=== PATIENT | female | born 2000 | race Caucasian/White ===

== ENCOUNTER 2022-06-23 14:00 | Emergency (ER) | payer OTHER, MEDICAID, SELFPAY ==
--- NOTE | ~2022-06-23 | XR_ITS ---
EXAMINATION: XR chest 2V DATE: 06/23/2022 15:03 INDICATION: Sternal chest pain. TECHNIQUE: Frontal and lateral views of the chest were obtained. COMPARISON: None. FINDINGS: The chest demonstrates clear lungs without pneumonia, pleural effusion, or pneumothorax. Th e heart size is normal. IMPRESSION: 1. No acute cardiopulmonary disease. Reviewed, dictated and finalized at location A. [facility] [employer] CLERK
--- NOTE | 2022-06-23 14:28 | ECG_ITS ---
Measurements Intervals [place] Rate: 68 P: 35 [place]: 137 QRS: 53 QRSD: 92 T: 47 QT: 376 QTc: 402 Interpretive Statements SINUS RHYTHM WITH SINUS ARRHYTHMIA INCOMPLETE RIGHT BUNDLE BRANCH BLOCK [90+ ms QRS DURATION, TERMINAL R IN V1/V2, 40+ ms S IN I/aVL/V4/V5/V6] NO PREVIOUS ECG AVAILABLE FOR COMPARISON Electronically Signed On 06-23-2022 16:18:25 [employer] by Josep Cassidy M.D.
[2022-06-23 14:32] VITALS: BP 152/102; PULSE 86; RESP 14; TEMP 36.7; O2SAT 98
--- NOTE | 2022-06-23 15:54 | ED.CHESTPAIN ---
HPI - Chest Pain General Chief Complaint: Chest Pain Stated Complaint: chest pain since tuesday Time Seen by Provider: 06/23/22 15:33 Source: patient Mode of arrival: ambulatory Limitations: no limitations History of Present Illness HPI narrative: Patient is a 21 y/o female who presents to the ED with c/o CP. Patient reports having midsternal CP intermittent since Tuesday. She states the pain began after volleyball practice on Tuesday when she was pushing down on a teammate trying to pop their back. She felt a sharp pain over her sternum at that time. She has had intermittent sharp pains since then. She has tried taking ibuprofen once without much relief. She also reports having some mild shortness of breath, worse with exertion, described as though she cannot take a full breath. Denies any significant cough or cold symptoms, abdominal pain, nausea, vomiting, palpitations, lower extremity pain or swelling. Patient reports a history of hypertension and hypercholesterolemia, but is not currently on medications for either of these. She has seen a mining teacher in the past and had negative work-ups. Related Data Home Medications Medication Instructions Recorded Confirmed levothyroxine 137 mcg capsule 137 mcg PO DAILY 05/21/22 Allergies Allergy/AdvReac Type Severity Reaction Status Date / Time azithromycin Allergy Mild Hives Verified 05/21/22 10:22 Review of Systems Review of Systems: CONSTITUTIONAL: Denies fever, chills, or sweats. ENT: Denies rhinorrhea, congestion, sore throat, or otalgia. CARDIOVASCULAR: See HPI. RESPIRATORY: See HPI. GASTROINTESTINAL: Denies abdominal pain, nausea, vomiting, or diarrhea. All systems reviewed & are unremarkable except as noted in HPI and below [facility] Past Medical History Medical History (Updated 06/23/22 @ 17:16 by Karen Garza PA-C) HLD (hyperlipidemia) HTN (hypertension) Hypothyroidism Surgical History Surgical History History of carpal tunnel release Family History Family History Mother Diabetes mellitus Father Hypertension Social History Social History Smoking status: Never smoker Alcohol intake: current Alcohol use details: occasional Substance use: current Substance use type: marijuana Living arrangements: dorm student housing Occupation/Education: student Gender identity (if verbalized by the patient): Female Sexual Orientation (if Verbalized by the Patient): Bisexual Exam Narrative: GENERAL: Well appearing, morbidly obese, non-toxic, in no acute distress. HEAD: Normocephalic, atraumatic. NECK: Supple. No adenopathy, no masses. RESPIRATORY: Airway patent, respirations nonlabored. Clear to auscultation bilaterally, no rales, rhonchi, wheezing. No splinting. CARDIOVASCULAR: Regular rate and rhythm without murmurs, rubs, or gallops. Radial pulses 2+ and equal bilaterally. ABDOMINAL: Soft, nontender, nondistended, no hepatosplenomegaly. Normoactive BS. MUSCULOSKELETAL: Moves all extremities. Strength/ROM intact without gross deformities. Tenderness to palpation over anterior chest wall/sternum, reproducing pain. No edema. SKIN: Warm, dry, normal color. No rashes. NEURO: A&O X3. Speech clear. Cranial nerves II-XII grossly intact. Steady gait. No ataxic movements. PSYCHIATRIC: Appropriate mood and affect. Normal interaction. Course Vital Signs Vital signs: Vital Signs Temperature 98.1 F 06/23/22 14:32 Pulse Rate 86 06/23/22 14:32 Respiratory Rate 14 06/23/22 14:32 Blood Pressure 152/102 H 06/23/22 14:32 Pulse Oximetry 98 06/23/22 14:32 Oxygen Delivery Room Air 06/23/22 14:32 Temperature 98.1 F 06/23/22 14:32 Pulse Rate 86 06/23/22 14:32 Respiratory Rate 14 06/23/22 14:32 Blood Pressure 152/102 H 06/23/22 14:32 Pulse O
[2022-06-23 16:15] LABS: Basophils Percent Auto 0.2 % (0.2-1.2); Eosinophils Absolute Auto 0.2 K/mm3 (0-0.3); Eosinophils Percent Auto 1.8 % (0-4.4); Hematocrit 38.3 % (37.0-47.0); Hemoglobin 12.5 g/dL (12.0-15.0); Immature Granulocyte Absolute 0.02 K/mm3 (0.00-0.031); Immature Granulocyte Percent A 0.2 % (0-0.5); Lymphocytes Absolute Auto 3.52 K/mm3 (0.9-3.2); Lymphocytes Percent Auto 43.2 % (18.3-44.2); Mean Corpuscular HGB Conc 32.6 g/dl (32-36); Mean Corpuscular Hemoglobin 28.2 pg (26-34); Mean Corpuscular Volume 86.5 fl (80-100); Mean Platelet Volume 9.7 fl (7.4-10.4); Monocytes Absolute Auto 0.4 K/mm3 (0.1-0.6); Monocytes Percent Auto 4.4 % (2.6-8.5); Neutrophils Absolute Auto 4.1 K/mm3 (1.3-6.7); Neutrophils Percent Auto 50.2 % (45.5-73.1); Platelet Count Result 292 k/mm3 (150-375); Red Blood Count 4.43 M/mm3 (4.2-5.4); Red Cell Distribution Width 12.9 % (11.5-14.5); White Blood Count 8.1 K/mm3 (4.5-10.0)
[2022-06-23 16:20] LABS: Alanine Aminotransferase 24 U/L (6-35); Albumin Level 4.1 g/dL (3.7-5.6); Alkaline Phosphatase 65 U/L (45-116); Anion Gap 6 mmol/L (8-16); Aspartate Amino Transferase 38 U/L (14-36); Bilirubin,Total 0.5 mg/dL (0.2-1.3); Blood Urea Nitrogen 9 mg/dL (8-21); Carbon Dioxide 28 mmol/L (22-30); Chloride 104 mmol/L (98-107); Estimated CRCL calculation 173 ml/min; Estimated Glomerular Filt Rate > 60; Glucose 88 mg/dL (65-110); Lipase 98 U/L (23-300); Potassium 3.8 mmol/L (3.4-5.0); Sodium 138 mmol/L (134-143)
[2022-06-23 16:34] LABS: Troponin I < 0.012 ng/mL (0.000-0.034)
[2022-06-23 16:48] LABS: D Dimer 0.33 ug/mL (<0.48)
[2022-06-23] MEDS: KETOROLAC (*BKC) 60 MG/2 ML VIAL IM (17:20)
[2022-06-23 18:08] VITALS: PULSE 71; RESP 18; O2SAT 99
== END 2022-06-23 18:11 | disposition home or self-care (01) ==
PROVIDERS: Emergency Medicine; Emergency Provider Physician Assistant
DX: R07.89 Other chest pain (principal); I10 Essential (primary) hypertension; E03.9 Hypothyroidism, unspecified; E78.5 Hyperlipidemia, unspecified
CPT/HCPCS: 36415; 71046; 80053; 83690; 84484; 85025; 85380; 93005; 96372; 99284; J1885

== ENCOUNTER 2022-09-01 13:13 | Emergency (ER) | payer OTHER, MEDICAID, SELFPAY ==
[2022-09-01 13:18] VITALS: BP 115/84; PULSE 110; RESP 18; TEMP 36.4; O2SAT 100
--- NOTE | 2022-09-01 13:20 | ED.NAVMDI ---
HPI - Nausea/Vomiting/Diarrhea General Chief complaint: Nausea/Vomiting/Diarrhea Stated complaint: BODY ACHES/DIARRHEA/NAUSEA/VOMITING/VELA Time Seen by Provider: 09/01/22 13:32 Source: patient and RN notes reviewed Mode of arrival: ambulatory Limitations: no limitations History of Present Illness HPI Narrative: 42-year-old female presents with concern for nausea, vomiting, diarrhea, headache, body aches. Reports symptoms started yesterday she has not vomiting or diarrhea since yesterday. She denies known contacts. She has not take any medications for her symptoms. She denies abdominal pain, dysuria, frequency, urgency. Reports normal menstrual. MD elicited complaint: nausea, vomiting and diarrhea Related Data Home Medications Medication Instructions Recorded Confirmed levothyroxine 137 mcg capsule 137 mcg PO DAILY 05/21/22 09/01/22 Allergies Allergy/AdvReac Type Severity Reaction Status Date / Time azithromycin Allergy Mild Hives Verified 09/01/22 13:23 Review of Systems Review of Systems: CONSTITUTIONAL: Reports malaise. Denies chills, sweats, or fever. EYES: Denies visual changes, redness, or discharge. ENT: Denies rhinorrhea, congestion, sinus pain, otalgia and sore throat. CARDIOVASCULAR: Denies chest pain, palpitations, or edema. RESPIRATORY: Reports cough. Denies dyspnea. GASTROINTESTINAL: Denies abdominal pain. Reports nausea, vomiting, diarrhea SKIN: Denies rash or itching. MUSCULOSKELETAL: Reports myalgia. NEUROLOGIC: Reports headache. All systems reviewed & are unremarkable except as noted in HPI and below [facility] Past Medical History Medical History (Updated 09/01/22 @ 13:38 by Evon Botello NP) HLD (hyperlipidemia) HTN (hypertension) Hypothyroidism Surgical History Surgical History History of carpal tunnel release Family History Family History Mother Diabetes mellitus Father Hypertension Social History Social History Smoking status: Never smoker Alcohol intake: current Alcohol use details: occasional Substance use: current Substance use type: marijuana Living arrangements: dorm student housing Occupation/Education: student Gender identity (if verbalized by the patient): Female Sexual Orientation (if Verbalized by the Patient): Bisexual Comments At time of signature, agree with nursing past medical, surgical, social and family history. There is no relevant family history pertinent to the presenting complaint Exam Narrative: GENERAL: Well-appearing, well-nourished, and in no acute distress. HEAD: Normocephalic EYES: PERRLA, conjunctivae clear ENT: Nares clear, no discharge. Mucous membranes moist. TM pearly rolon with sharp light reflex bilaterally; no tragal tenderness. Oropharynx not erythematous without lesions. Tonsils not enlarged and without exudate, no drooling, no hoarseness, no trismus, uvula midline. NECK: Supple. No lymphadenopathy CHEST: Clear to auscultation, breath sounds equal. No wheezing, rhonchi, rales, or stridor. No respiratory distress, speaks in full sentences. HEART: Regular rate and rhythm. No murmur heard. ABD: Abdomen soft, nontender, normal bowel sounds SKIN: Warm, dry, no rash. NEURO: Alert and oriented x3. PSYCH: Normal mood and affect Course Course Emergency Course: Patient is aware of diagnosis, understands and agrees to treatment plan. Anticipatory guidance given. Patient agrees to follow-up as directed and is aware of reasons to seek care at the emergency department. Portions of this record may have been created with voice recognition software Level of Care: Express Care Visit Vital Signs Vital signs: Reviewed. MDM - Nausea/Vomiting/Diarrhea MDM Narrative Medical decision making narrative: Differential diagnosis considered: Gastroenter
== END 2022-09-01 13:43 | disposition home or self-care (01) ==
PROVIDERS: Emergency Provider Nurse Practitioner
DX: B34.9 Viral infection, unspecified (principal); F12.90 Cannabis use, unspecified, uncomplicated; E78.5 Hyperlipidemia, unspecified; I10 Essential (primary) hypertension; E03.9 Hypothyroidism, unspecified
CPT/HCPCS: 87804; 99213; G0463